=== PATIENT | male | born 1950 | race Caucasian/White ===

== ENCOUNTER 2021-06-23 11:30 | Emergency (ER) | payer OTHER, SELFPAY ==
[2021-06-23 11:48] VITALS: BP 186/84; PULSE 68; RESP 18; TEMP 36.3; O2SAT 99; BMI 27.4
--- NOTE | 2021-06-23 13:55 | ED.EXTPRO ---
HPI - Extremity Problem <Sam Joel PA-C - Last Filed: 06/23/21 14:01> General Chief complaint: Extremity Problem,Nontraumatic Stated complaint: poss blood clot sent by his urgent care Time Seen by Provider: 06/23/21 11:56 Source: patient Mode of arrival: Ambulatory History of Present Illness HPI Narrative: 71-year-old male presents to the ED with left-sided lower leg pain. Patient states he was golfing 6 days prior to arrival wearing a ankle length boot that kept hitting against his lateral fibula. Patient states that towards the end of the round, the pain was quite unbearable. Since then, patient states that he experiences pain in that spot when applying pressure on it. Patient denies any numbness, tingling, weakness, swelling. Patient endorses that he is able to bear weight and ambulate normally. Patient denies history of blood clots. Patient denies any other trauma. Related Data Allergies Allergy/AdvReac Type Severity Reaction Status Date / Time Sulfa (Sulfonamide Allergy Unknown Verified 06/23/21 11:53 Antibiotics) Review of Systems <Sam Joel PA-C - Last Filed: 06/23/21 14:01> Review of Systems ROS Unobtainable: All systems reviewed & are unremarkable except as noted in HPI and below Constitutional Constitutional: Denies chills, Denies fatigue, Denies fever(s), Denies frequent falls, Denies lethargy and Denies weakness Eyes Eyes: Denies change in vision, Denies eye discharge, Denies irritation and Denies loss of vision ENT Ears, Nose, Mouth, and Throat: Denies change in voice, Denies dizziness, Denies neck pain, Denies sore throat and Denies throat swelling Cardiovascular Cardiovascular: Denies chest pain, Denies irregular heart rhythm, Denies lightheadedness, Denies palpitations, Denies dyspnea, Denies dyspnea on exertion and Denies orthopnea Respiratory Respiratory: Denies cough, Denies dyspnea, Denies dyspnea on exertion and Denies wheezing Gastrointestinal Gastrointestinal: Denies abdominal pain, Denies change in bowel habits, Denies diarrhea, Denies nausea and Denies vomiting Genitourinary Genitourinary: Denies hematuria, Denies flank pain, Denies urinary incontinence and Denies urinary urgency Musculoskeletal Musculoskeletal: Denies back pain, Denies muscle weakness, Denies neck pain, Denies numbness and Denies tingling Comments: Left lower leg pain on the lateral side. Integumentary/Breasts Skin/Breast: Denies pruritus, Denies erythema, Denies rash and Denies wounds Neurologic Neurologic: Denies behavioral changes, Denies confusion, Denies dizziness, Denies frequent falls, Denies loss of vision, Denies numbness, Denies tingling and Denies weakness Psychiatric Psychiatric: Denies anxiety, Denies behavioral changes, Denies confusion, Denies depression, Denies homicidal ideation and Denies suicidal ideation Endocrine Endocrine: Denies fatigue, Denies flushing and Denies palpitations Hematologic/Lymphatic Hematologic/Lymphatic: Denies easy bruising Allergic/Immunologic Allergic/Immunologic: Denies urticaria, Denies throat swelling and Denies wheezing Patient History <Sam Joel PA-C - Last Filed: 06/23/21 14:01> Social History Smoking Status: Never smoker Smoking Status: Never smoker alcohol intake frequency: 0-2 drinks per day Substance Use Type: does not use Exam <Sam Joel PA-C - Last Filed: 06/23/21 14:01> Initial Vital Signs Initial Vital Signs: Vital Signs Temperature 97.4 F L 06/23/21 11:48 Pulse Rate 68 06/23/21 11:48 Respiratory Rate 18 06/23/21 11:48 Blood Pressure 186/84 H 06/23/21 11:48 Pulse Oximetry 99 06/23/21 11:48 Const General: cooperative, healthy appearing and comfortable [facility] Head: normal to inspection Resp Effort & Inspection: normal respiratory effort Auscultation: clear to auscultation bilaterally Cardio Rate: regular rate Rhythm: regular rhythm Skin General: no rashes or lesions noted Neuro General: patient alert, patient awake and patient oriented x3 Extrem Other: Mild tenderness to palpation on left lower lateral leg. No erythema, swelling. Full range of motion. Strength and sensation intact. Neurovascularly intact. <Eleazar Burrows DO - Last Filed: 06/23/21 17:16> Initial Vital Signs Initial Vital Signs: Vital Signs Temperature 97.4 F L 06/23/21 11:48 Pulse Rate 68 06/23/21 11:48 Respiratory Rate 18 06/23/21 11:48 Blood Pressure 186/84 H 06/23/21 11:48 Pulse Oximetry 99 06/23/21 11:48 Course <Sam Joel PA-C - Last Filed: 06/23/21 14:01> Vital Signs Vital signs: Vital Signs - 8 hr 06/23/21 11:48 Temperature 97.4 F L Pulse Rate 68 Respiratory Rate 18 Blood Pressure 186/84 H Pulse Oximetry 99 <Eleazar Burrows DO - Last Filed: 06/23/21 17:16> Vital Signs Vital signs: Vital Signs - 8 hr 06/23/21 11:48 Temperature 97.4 F L Pulse Rate 68 Respiratory Rate 18 Blood Pressure 186/84 H Pulse Oximetry 99 MDM - Extremity (Nontraumatic) <Sam Joel PA-C - Last Filed: 06/23/21 14:01> MDM Narrative Medical decision making narrative: 71-year-old male presents to the ED with left-sided lower leg pain. Given history and physical exam, unlikely DVT. Pain is reproducible with palpation. Unlikely fracture/dislocation, given mechanism of injury and extent of symptoms. With joint decision making, we agreed that no imaging is indicated at this point. ED return precautions discussed. Patient will follow-up with PCP. Patient verbalized understanding. Discharge Plan Departure Patient Disposition: Home Clinical Impression: Leg pain Instructions: DI for Leg Pain Activity Restrictions/Additional Instructions: You were evaluated in the ED today for left lower leg pain. Given your history and physical exam, your symptoms are likely due to a contusion due to repeated friction from your boot. You may use Tylenol, ibuprofen, Aleve for your symptoms. You may apply heat packs and elevate your foot for relief. Return to the ED if you notice any numbness, tingling, weakness. Please follow-up with your PCP. <Eleazar Burrows DO - Last Filed: 06/23/21 17:16> Cosign ED Attending Cosjustenature Attestation: Dr Burrows Co-Sign Statement: I was available for consultation during this patient's emergency department visit. This chart is signed by myself for administrative purposes only. I did not have direct contact with this patient during this visit. They were seen independently by the APC.
== END 2021-06-23 14:03 | disposition home or self-care (01) ==
PROVIDERS: Emergency Provider Student in an Organized Health Care Education/Training Program
DX: M79.662 Pain in left lower leg (principal)
CPT/HCPCS: 99281

== ENCOUNTER → 2021-11-30 09:06 | Outpatient (CLI) | payer OTHER, SELFPAY ==
--- NOTE | 2021-11-30 09:07 | DI.US.S_ITS ---
PROCEDURE: US PERIPH VENOUS LOW EXTREM RT INDICATIONS: right calf pain TECHNIQUE: Real-time imaging, as well as color and pulse Doppler interrogation, were performed of the lower extremity deep veins from the inguinal ligament to the popliteal fossa. COMPARISON: None. FINDINGS: The common femoral, femoral and popliteal veins are normally compressible, and free of intraluminal thrombus. Color and pulse Doppler demonstrate normal phasic intraluminal flow. There is normal augmentation response to distal compression maneuver. IMPRESSION: No deep vein thrombosis of the right lower extremity. Dictated by: Ayse Tucker M.D. on 11/30/2021 at 9:31 Approved by: Ayse Tucker M.D. on 11/30/2021 at 9:31
== END ==
PROVIDERS: PCP Family Medicine; Referring Provider Nurse Practitioner Family; Visit Provider Nurse Practitioner Family
DX: M79.661 Pain in right lower leg (principal)
CPT/HCPCS: 93971

== ENCOUNTER → 2021-12-01 09:27 | Outpatient (CLI) | payer OTHER, SELFPAY ==
--- NOTE | 2021-12-01 09:28 | DI.RAD.S_ITS ---
PROCEDURE: XR HAND LT MIN 3V INDICATIONS: left 5th digit pain TECHNIQUE: 3 views of the hand(s) acquired. COMPARISON: None. FINDINGS: Bones: No acute fractures or dislocations. Carpal bones are normally aligned. No suspicious bony lesions. Soft tissues: No suspicious soft tissue calcifications. IMPRESSION: No visualized acute fracture or dislocation. However, if clinical concern and/or pain persist, short interval imaging followup in 7-10 days is recommended, as occult injury cannot be definitively excluded. Dictated by: Alison Najera M.D. on 12/01/2021 at 9:52 Approved by: Alison Najera M.D. on 12/01/2021 at 10:00
== END ==
PROVIDERS: PCP Family Medicine; Referring Provider Physician Assistant; Visit Provider Physician Assistant
DX: M79.645 Pain in left finger(s) (principal)
CPT/HCPCS: 73130

== ENCOUNTER → 2022-03-30 10:06 | Outpatient (CLI) | payer OTHER, SELFPAY ==
--- NOTE | 2022-03-30 11:03 | DI.RAD.S_ITS ---
PROCEDURE: XR LUMBAR SPINE MIN 4V INDICATIONS: chronic back pain and right calf aching TECHNIQUE: 5 views of the lumbar spine were acquired, including bilateral oblique views. COMPARISON: None. FINDINGS: Bones: 5 nonrib-bearing vertebrae are present, with rudimentary ribs at T12. There is normal bony alignment. No vertebral body compression fractures. No suspicious bony lesions. Multilevel disc space narrowing and endplate osteophyte formation. Facet hypertrophy throughout the mid and lower lumbar spine. Soft tissues: Overlying bowel gas pattern is normal. No suspicious soft tissue calcifications. IMPRESSION: 1. Multilevel degenerative disc and facet disease. 2. No acute fracture. No osseous lesion. If symptoms and/or clinical suspicion for pathology persist, further assessment with repeat, or advanced imaging (e.g., CT, MRI, or bone scan) may be helpful for further assessment. Dictated by: Christofer Velasquez M.D. on 03/30/2022 at 11:52 Transcribed by: VANNA on 03/30/2022 at 11:52 Approved by: Christofer Velasquez M.D. on 03/30/2022 at 16:36
[2022-03-30 11:49] LABS: Add Manual Diff / Slide Review NO; Basophils Absolute Auto 0 /uL (0-100); Basophils Percent Auto 0.7 % (0-2); Eosinophils Absolute Auto 200 /uL (0-450); Hematocrit 42.8 % (41-53); Hemoglobin 14.7 g/dL (13.5-17.5); Lymphocytes Absolute Auto 1900 /uL (1100-4500); Lymphocytes Percent Auto 36.2 % (25-40); Mean Corpuscular HGB Conc 34.3 % (30-36); Mean Corpuscular Hemoglobin 31.9 PG (26-34); Mean Corpuscular Volume 92.9 fL (80-100); Monocytes Absolute Auto 500 /uL (0-900); Monocytes Percent Auto 10.4 % (3-14); Neutrophils Absolute Auto 2600 /uL (1500-7000); Neutrophils Percent Auto 49.7 % (50-75); Platelet Count 206 X10^3/uL (150-400); Red Cell Distribution Width 13.2 % (11.6-14.8); White Blood Cell Count 5.3 X10^3/uL (4.5-11.0)
[2022-03-30 12:33] LABS: TSH w/ Reflex to FT4 2.26 uIU/mL (0.47-4.68)
[2022-03-30 13:18] LABS: Alanine Aminotransferase 26 IU/L (<50); Albumin 4.4 g/dL (3.5-5.0); Albumin Globulin Ratio 1.5 (1.0-2.8); Alkaline Phosphatase 71 U/L (38-126); Aspartate Aminotransferase 23 IU/L (17-59); BUN Creatinine Ratio 19.3 (6-22); Bilirubin Total 0.4 mg/dL (0.2-1.3); Blood Urea Nitrogen 21 mg/dL (9-20); Calcium 9.4 mg/dL (8.4-10.2); Carbon Dioxide 28 mmol/L (22-32); Chloride 100 mmol/L (98-107); Cholesterol 188 mg/dL (140-199); Estimated Glomerular Filt Rate > 60 mL/min (>60); Globulin 2.9 g/dL (1.7-4.1); Glucose 99 mg/dL (80-110); HDL Cholesterol 60 mg/dL (40-60); HEMOLYSIS < 15 (0-50); LDL Cholesterol Calculated 113 mg/dL (<100); Potassium 4.6 mmol/L (3.4-5.1); Sodium 138 mmol/L (137-145); Total Protein 7.3 g/dL (6.3-8.2); Triglycerides 75 mg/dL (35-150)
[2022-03-30 13:36] LABS: Creatinine Urine Random 88.7 mg/dL
[2022-03-30 13:40] LABS: Microalbumi Creatinin Ratio Ur 11.2 ug/mg CR (<30)
[2022-03-30 13:42] LABS: Prostate Specific Antigen Scrn 5.06 ng/mL (0.1-4.0)
== END ==
PROVIDERS: PCP Family Medicine; Referring Provider Family Medicine; Visit Provider Family Medicine
DX: Z12.5 Encounter for screening for malignant neoplasm of prostate (principal); E78.2 Mixed hyperlipidemia; I10 Essential (primary) hypertension; N21.9 Calculus of lower urinary tract, unspecified; G89.29 Other chronic pain; M54.16 Radiculopathy, lumbar region; M51.16 Intervertebral disc disorders with radiculopathy, lumbar region; M47.816 Spondylosis without myelopathy or radiculopathy, lumbar region
CPT/HCPCS: 36415; 72110; 80053; 80061; 82043; 82570; 84443; 85025; G0103

== ENCOUNTER → 2022-04-01 19:30 | Outpatient (CLI) | payer OTHER, SELFPAY ==
--- NOTE | 2022-04-01 19:31 | DI.MRI.S_ITS ---
PROCEDURE: MR LUMBAR SPINE WO CON INDICATIONS: Right-sided radicular symptoms, chronic back pain TECHNIQUE: Noncontrast sagittal T1 spin echo and T2 fast echo, sagittal STIR, and T2 fast spin echo through the lumbar spine. In cases with scoliosis, additional coronal T2 fast spin echo may be performed. COMPARISON: None. FINDINGS: Image quality: Excellent. Alignment and Curvature: There is normal bony alignment. Bone Marrow: Marrow is of normal overall signal. No acute vertebral body compression fractures. Mild and degenerative endplate changes noted. Modic type 1 degenerative endplate changes noted involving the superior endplates of L1, L2-2 in the inferior endplate of L3. Spinal Cord: Conus medullaris terminates at the L1 level. Visualized cord demonstrates normal signal and size. Paraspinous Soft Tissues: No paravertebral masses. T12-L1: Normal appearance. L1-L2: Normal appearance. L2-L3: Normal appearance. L3-L4: Normal appearance. L4-L5: Normal appearance. L5-S1: Normal appearance. IMPRESSION: Modic type 1 edematous degenerative endplate changes. No central or foraminal stenosis throughout the exam Approved by: Garth Chandra M.D. on 04/02/2022 at 10:56
== END ==
PROVIDERS: PCP Family Medicine; Referring Provider Family Medicine; Visit Provider Family Medicine
DX: M47.816 Spondylosis without myelopathy or radiculopathy, lumbar region
CPT/HCPCS: 72148

== ENCOUNTER → 2022-06-29 08:40 | Outpatient (CLI) | payer OTHER, SELFPAY ==
[2022-06-29 11:47] LABS: Prostate Specific Antigen Scrn 4.56 ng/mL (0.1-4.0)
== END ==
PROVIDERS: PCP Family Medicine; Referring Provider Family Medicine; Visit Provider Family Medicine
DX: Z12.5 Encounter for screening for malignant neoplasm of prostate (principal)
CPT/HCPCS: 36415; G0103

== ENCOUNTER → 2023-01-03 07:27 | Outpatient (CLI) | payer OTHER, SELFPAY ==
[2023-01-03 08:39] LABS: Add Manual Diff / Slide Review NO; Basophils Absolute Auto 100 /uL (0-100); Basophils Percent Auto 0.8 % (0-2); Eosinophils Absolute Auto 200 /uL (0-450); Eosinophils Percent Auto 3.5 % (2-4); Hemoglobin 14.7 g/dL (13.5-17.5); Lymphocytes Absolute Auto 2400 /uL (1100-4500); Lymphocytes Percent Auto 35.8 % (25-40); Mean Corpuscular HGB Conc 34.2 % (30-36); Mean Corpuscular Hemoglobin 31.7 PG (26-34); Mean Corpuscular Volume 92.5 fL (80-100); Monocytes Absolute Auto 700 /uL (0-900); Neutrophils Absolute Auto 3300 /uL (1500-7000); Neutrophils Percent Auto 49.9 % (50-75); Platelet Count 210 X10^3/uL (150-400); Red Blood Cell Count 4.64 X10^6/uL (4.5-5.9); Red Cell Distribution Width 13.2 % (11.6-14.8); White Blood Cell Count 6.6 X10^3/uL (4.5-11.0)
[2023-01-03 08:50] LABS: Alanine Aminotransferase 27 IU/L (<50); Albumin 4.3 g/dL (3.5-5.0); Albumin Globulin Ratio 1.3 (1.0-2.8); Alkaline Phosphatase 84 U/L (38-126); Aspartate Aminotransferase 27 IU/L (17-59); Bilirubin Total 0.7 mg/dL (0.2-1.3); Blood Urea Nitrogen 21 mg/dL (9-20); Calcium 9.4 mg/dL (8.4-10.2); Carbon Dioxide 26 mmol/L (22-32); Chloride 103 mmol/L (98-107); Cholesterol 199 mg/dL (140-199); Estimated Glomerular Filt Rate > 60 mL/min (>60); Globulin 3.2 g/dL (1.7-4.1); Glucose 106 mg/dL (80-110); HDL Cholesterol 57 mg/dL (40-60); HEMOLYSIS < 15 (0-50); LDL Cholesterol Calculated 124 mg/dL (<100); Potassium 4.1 mmol/L (3.4-5.1); Sodium 136 mmol/L (137-145); Total Protein 7.5 g/dL (6.3-8.2); Triglycerides 90 mg/dL (35-150)
[2023-01-03 09:20] LABS: Prostate Specific Antigen Scrn 5.62 ng/mL (0.1-4.0)
[2023-01-03 09:23] LABS: Creatinine Urine Random 104.2 mg/dL
[2023-01-03 09:28] LABS: Microalbumi Creatinin Ratio Ur 9.5 ug/mg CR (<30)
== END ==
PROVIDERS: PCP Family Medicine; Referring Provider Family Medicine; Visit Provider Family Medicine
DX: E78.2 Mixed hyperlipidemia (principal); Z12.5 Encounter for screening for malignant neoplasm of prostate; I10 Essential (primary) hypertension; K21.9 Gastro-esophageal reflux disease without esophagitis
CPT/HCPCS: 36415; 80053; 80061; 82043; 82570; 84443; 85025; G0103

== ENCOUNTER → 2023-02-07 11:21 | Outpatient (CLI) | payer OTHER, SELFPAY ==
--- NOTE | 2023-02-07 11:22 | DI.RAD.S_ITS ---
PROCEDURE: XR FOOT LT MIN 3V INDICATIONS: L medial heel pain/tenderness 3wk, active, no injury TECHNIQUE: 3 views of the foot were acquired. COMPARISON: None. FINDINGS: Bones: No fractures or dislocations. No suspicious bony lesions. Mild osteoarthritic changes of the interphalangeal and 1st metatarsophalangeal joints. Soft tissues: No tibiotalar joint effusion. Achilles tendon appears normal. IMPRESSION: No acute osseous abnormality. If pain persists with conservative management, consider repeat x-ray in 10-14 days or cross-sectional imaging. Dictated by: Ivan Reyes M.D. on 02/07/2023 at 11:44 Approved by: Ivan Reyes M.D. on 02/07/2023 at 11:44
== END ==
PROVIDERS: PCP Family Medicine; Referring Provider Student in an Organized Health Care Education/Training Program; Visit Provider Student in an Organized Health Care Education/Training Program
DX: M79.672 Pain in left foot (principal)
CPT/HCPCS: 73630

== ENCOUNTER → 2023-03-28 08:35 | Outpatient (CLI) | payer OTHER, SELFPAY ==
[2023-03-28 10:09] LABS: Cholesterol 185 mg/dL (140-199); HDL Cholesterol 57 mg/dL (40-60); LDL Cholesterol Calculated 112 mg/dL (<100); Triglycerides 81 mg/dL (35-150)
[2023-03-28 10:34] LABS: Prostate Specific Antigen 5.25 ng/mL (0.10-4.00)
== END ==
PROVIDERS: PCP Family Medicine; Referring Provider Family Medicine; Visit Provider Family Medicine
DX: E78.2 Mixed hyperlipidemia (principal); R97.20 Elevated prostate specific antigen [PSA]
CPT/HCPCS: 36415; 80061; 84153

== ENCOUNTER → 2023-03-29 09:00 | Outpatient (CLI) | payer OTHER, SELFPAY ==
--- NOTE | 2023-03-29 09:01 | DI.MRI.S_ITS ---
PROCEDURE: MR PELVIC PROSTATE PROTOCOL INDICATIONS: Elevated PSA TECHNIQUE: Coronal HASTE, axial T1 FSE with fat saturation, 3-plane nonbreath-hold T2 FSE. After the administration of contrast, dynamic axial, delayed axial and coronal VIBE or 2-D FLASH with fat saturation through the pelvis. Optional diffusion weighted imaging and ADC may be performed. COMPARISON: None. FINDINGS: Image quality: Diffusion weighted and dynamic contrast enhanced images are diagnostic. Prostate: Gland size is 5.3 x 3.6 x 3.2 cm; ellipsoid gland volume is 31.7 mL. Lesion 1: Small wedge-shaped focus of T2 hypointensity measuring 0.8 x 0.8 cm in the left posterolateral peripheral zone at the mid gland level. There is minor ADC hypointensity and no significant diffusion image abnormality. Mild arterial enhancement. Overall score PI-RADS 3. Lesion 2: Indistinct, minimally T2 hypointense area in the right posterolateral peripheral zone at the mid gland level extending towards the apex. This area is best seen on diffusion imaging and measures 1.9 cm. There is minimal corresponding ADC hypointensity and mild early arterial enhancement. Overall PI-RADS 3. Genitourinary system: Bladder wall thickness is normal. Distal ureters are non distended. Bowel and peritoneum: No pathologic free pelvic fluid. Inferior colon and small bowel loops are normal in caliber. Nodes and vessels: No pelvic or inguinal adenopathy by size criteria. Iliac vessels are normal in caliber. Soft tissues: No inguinal hernias. Bones: Marrow demonstrates normal overall signal, without lesions to suggest metastases. IMPRESSION: 2 areas in the peripheral zone of the prostate gland with indeterminate characteristics and PI-RADS score 3. Differential diagnosis includes prostatitis and postinflammatory fibrosis. No adenopathy. Dictated by: Bharti Schneider M.D. on 03/29/2023 at 15:14 Approved by: Bharti Schneider M.D. on 03/29/2023 at 15:29
== END ==
PROVIDERS: PCP Family Medicine; Referring Provider Urology; Visit Provider Urology
DX: R97.20 Elevated prostate specific antigen [PSA] (principal)
CPT/HCPCS: 72197; A9579

== ENCOUNTER → 2023-04-19 10:11 | Outpatient (CLI) | payer OTHER, SELFPAY ==
--- NOTE | 2023-04-19 10:12 | DI.RAD.S_ITS ---
PROCEDURE: XR ELBOW RT MIN 3V INDICATIONS: right elbow pain over medial epicondyle TECHNIQUE: 3 views of the elbow were acquired. COMPARISON: None. FINDINGS: Bones: No fractures or dislocations. No suspicious bony lesions. Soft tissues: No elbow joint effusion. No suspicious soft tissue calcifications. IMPRESSION: No acute bony abnormality or significant joint effusion. Dictated by: Michel Morton M.D. on 04/19/2023 at 14:33 Approved by: Michel Morton M.D. on 04/19/2023 at 14:33
== END ==
PROVIDERS: PCP Family Medicine; Referring Provider Family Medicine; Visit Provider Family Medicine
DX: M25.521 Pain in right elbow (principal)
CPT/HCPCS: 73080

== ENCOUNTER → 2023-07-04 07:29 | Outpatient (CLI) | payer OTHER, SELFPAY ==
[2023-07-06 09:43] LABS: PSA Free % 9.8 % (.); PSA, Total 6.2 ng/mL (0.0-4.0)
== END ==
PROVIDERS: PCP Family Medicine; Referring Provider Urology; Visit Provider Urology
DX: R97.20 Elevated prostate specific antigen [PSA] (principal); Z80.42 Family history of malignant neoplasm of prostate
CPT/HCPCS: 36415; 84153; 84154

== ENCOUNTER → 2023-07-21 09:46 | Outpatient (CLI) | payer OTHER, SELFPAY | PROVIDERS: PCP Family Medicine; Visit Provider Urology | DX: N41.1 Chronic prostatitis (principal); R97.20 Elevated prostate specific antigen [PSA]; R39.9 Unspecified symptoms and signs involving the genitourinary system; Z80.42 Family history of malignant neoplasm of prostate | CPT/HCPCS: 51798; 81002; 87086; 99214 ==

== ENCOUNTER 2023-08-09 11:05 | Day surgery (SDC) | payer OTHER, SELFPAY ==
[2023-08-09 12:14] VITALS: BP 147/73; PULSE 57; RESP 16; TEMP 36.1; O2SAT 97
[2023-08-09] MEDS: LACTATED RINGERS 1,000 ML 42 ML IV (12:22)
--- NOTE | 2023-08-09 13:13 | P.HP_ITS ---
History of Present Illness History of Present Illness Date Patient Seen: 08/09/23 Time Patient Seen: 13:14 Chief complaint: Screening Colonoscopy Narrative: 73-year-old man personal history of colonic polyps here for screening colonoscopy. Last colonoscopy 4-5 years ago. No family history of intestinal malignancy. No abdominal concerns today. FOR[facility]LY [facility], [facility] Medical History Chronic prostatitis Lower urinary tract symptoms Family history of prostate cancer in father Rising PSA level Elevated PSA Plantar fasciitis H/O tinnitus Male circumcision Skin cancer, basal cell GERD (gastroesophageal reflux disease) Hyperlipidemia Hypertension Surgical History History of tonsillectomy and adenoidectomy Family History Father Cancer Hyperlipidemia Hypertension Mother Cancer Hyperlipidemia Migraines Sister Diabetes mellitus Hearing impairment Social History marital status: number of children: 0 occupational status: previously employed and other Smoking Status: Never smoker alcohol intake: current caffeine: Yes Type(s) of exercise: weight lifting, other and running frequency: 3-4 times per week duration: 15-30 minutes/day Meds Home Medications and Allergies Home Medications Medication Instructions Recorded Confirmed Type losartan 25 mg tablet 25 mg PO DAILY #90 tabs 11/01/22 08/09/23 Rx rizatriptan 10 mg tablet See Rx Instructions PO .COMPLEX 03/11/23 07/21/23 Rx #20 tabs ipratropium bromide 21 mcg (0.03 2 spray intranasal BID #30 mL 04/21/23 08/09/23 Rx %) nasal spray peg 3350-electrolytes 236 240 ml PO Q10M #4,000 mL 05/17/23 07/21/23 Rx gram-22.74 gram-6.74 gram-5.86 gram solution (Golytely) pravastatin 20 mg tablet 20 mg PO DAILY #90 tabs 07/26/23 08/09/23 Rx Allergies Allergy/AdvReac Type Severity Reaction Status Date / Time Sulfa (Sulfonamide Allergy Unknown Hives Verified 08/09/23 12:09 Antibiotics) Exam Vital Signs (past 8 hours): - 03/19/24 12:14 Temperature 97 F L Pulse Rate 57 L Respiratory Rate 16 Blood Pressure 147/73 H Pulse Oximetry 97 Oxygen Delivery Method Room Air Oxygen Delivery Method Room Air Narrative Exam Narrative: General adult man alert oriented no acute distress Chest nonlabored respiration Extremities warm well perfused Assessment & Plan Assessment & Plan narrative: The patient requires colorectal screening and colonoscopy is recommended. Technical details were discussed. Risks, benefits, alternatives explained. Risks including but not limited to myocardial infarction, aspiration, bleeding, pain, missed lesion, incomplete examination, need for further radiographic studies, colonic perforation, and need for major abdominal surgery were discussed. All questions were answered to their satisfaction, and they are in agreement with this plan.
[2023-08-09 13:33] VITALS: BP 102/59; PULSE 55; RESP 15; TEMP 36.4; O2SAT 97
--- NOTE | 2023-08-09 13:35 | P.OP.COLON_ITS ---
Operative Date/Time/Diagnoses Date of procedure: 08/09/23 Time of procedure: 13:35 Pre-op diagnosis: Colorectal screening Procedure & Clinicians Study performed: Colonoscopy Same procedure as scheduled: Yes Indications: Colorectal screening Surgeon: Rayshawn Figueroa Procedure Notes Procedure in detail: The history and physical was performed/updated and the patient is ASA class is 2. The procedure was discussed in detail with the patient. Potential risks complications including infection, bleeding, missed diagnosis, perforation, need for surgery, and were explained. Their questions were answered and informed consent was obtained. Patient was brought to the procedure room and placed standard monitoring equipment. The patient's vital signs were monitored continuously throughout the entire procedure. Prior to starting time-out was performed. The patient was placed in the left lateral recumbent position. Procedural sedation was administered by anesthesia. Examination began with a thorough inspection of the perianal area there was no evidence of fissures, fistulae, external hemorrhoids or cutaneous malignancy. The colonoscopy scope was then placed into the anal canal and was advanced to the cecum, which was identified by the ileocecal valve , the appendiceal orifice and the confluence of the taenia. The scope was then slowly withdrawn examining colon thoroughly in all directions, irrigating it of any residual stool. The scope was retroflexed within the rectum The patient tolerated the procedure well. They will be discharged once criteria are met. The prep was of good/excellent quality. The withdrawl time was 6 minutes. FINDINGS * No masses polyps or inflammation. * Descending colon mild diverticulosis * Internal hemorrhoids Specimen(s): none sent Impression: Normal colonoscopy Post-procedure Recommendations: High fiber diet Disposition: same day surgery
[2023-08-09 13:38] VITALS: BP 108/64; PULSE 52; RESP 15; TEMP 36.4; O2SAT 98
[2023-08-09 13:43] VITALS: BP 109/64; PULSE 50; RESP 13; TEMP 36.4; O2SAT 98
== END 2023-08-09 13:59 | disposition home or self-care (01) ==
PROVIDERS: PCP Family Medicine; Referring Provider Surgery; Visit Provider Surgery
PROC: 0DJD8ZZ Inspection of Lower Intestinal Tract, Via Natural or Artificial Opening Endoscopic (ICD-10-PCS; CPT 45378; principal; 2023-08-09 12:15)
DX: Z12.11 Encounter for screening for malignant neoplasm of colon (principal); K57.30 Diverticulosis of large intestine without perforation or abscess without bleeding; K64.8 Other hemorrhoids
CPT/HCPCS: 45378; J2704

== ENCOUNTER → 2023-10-03 08:37 | Outpatient (CLI) | payer OTHER, SELFPAY ==
[2023-10-04 08:45] LABS: PSA Free % 11.3 % (.); PSA, Total 4.7 ng/mL (0.0-4.0)
== END ==
PROVIDERS: PCP Family Medicine; Referring Provider Urology; Visit Provider Urology
DX: R97.20 Elevated prostate specific antigen [PSA] (principal)
CPT/HCPCS: 36415; 84153; 84154

== ENCOUNTER → 2023-10-19 11:24 | Outpatient (CLI) | payer OTHER, SELFPAY | PROVIDERS: PCP Family Medicine; Visit Provider Urology | DX: N41.1 Chronic prostatitis (principal); R39.9 Unspecified symptoms and signs involving the genitourinary system; R97.20 Elevated prostate specific antigen [PSA]; Z80.42 Family history of malignant neoplasm of prostate | CPT/HCPCS: 81002; 87086; 99213 ==

== ENCOUNTER → 2024-01-03 06:53 | Outpatient (CLI) | payer OTHER, SELFPAY | PROVIDERS: PCP Family Medicine; Referring Provider Urology; Visit Provider Urology | DX: R97.20 Elevated prostate specific antigen [PSA] (principal) | CPT/HCPCS: 36415; 84153; 84154 ==

== ENCOUNTER → 2024-04-03 07:16 | Outpatient (CLI) | payer OTHER, SELFPAY ==
[2024-04-03 07:48] LABS: Add Manual Diff / Slide Review NO; Basophils Absolute Auto 0 /uL (0-100); Basophils Percent Auto 0.8 % (0-2); Eosinophils Absolute Auto 200 /uL (0-450); Eosinophils Percent Auto 3.9 % (2-4); Hematocrit 44.3 % (41-53); Lymphocytes Absolute Auto 2400 /uL (1100-4500); Lymphocytes Percent Auto 38.9 % (25-40); Mean Corpuscular HGB Conc 33.9 % (30-36); Mean Corpuscular Volume 94.3 fL (80-100); Monocytes Absolute Auto 600 /uL (0-900); Neutrophils Absolute Auto 2800 /uL (1500-7000); Neutrophils Percent Auto 46.4 % (50-75); Platelet Count 222 X10^3/uL (150-400); Red Cell Distribution Width 13.2 % (11.6-14.8); White Blood Cell Count 6.1 X10^3/uL (4.5-11.0)
[2024-04-03 08:08] LABS: Alanine Aminotransferase 25 IU/L (<50); Albumin 4.4 g/dL (3.5-5.0); Albumin Globulin Ratio 1.6 (1.0-2.8); Alkaline Phosphatase 77 U/L (38-126); Aspartate Aminotransferase 25 IU/L (17-59); BUN Creatinine Ratio 18.9 (6-22); Bilirubin Total 0.7 mg/dL (0.2-1.3); Blood Urea Nitrogen 21 mg/dL (9-20); Calcium 9.6 mg/dL (8.4-10.2); Carbon Dioxide 28 mmol/L (22-32); Chloride 103 mmol/L (98-107); Cholesterol 190 mg/dL (140-199); Estimated Glomerular Filt Rate > 60 mL/min (>60); Globulin 2.7 g/dL (1.7-4.1); Glucose 114 mg/dL (80-110); HDL Cholesterol 63 mg/dL (40-60); HEMOLYSIS < 15 (0-50); LDL Cholesterol Calculated 111 mg/dL (<100); Potassium 4.7 mmol/L (3.4-5.1); Sodium 137 mmol/L (137-145); Total Protein 7.1 g/dL (6.3-8.2); Triglycerides 81 mg/dL (35-150)
[2024-04-03 08:37] LABS: TSH w/ Reflex to FT4 3.72 uIU/mL (0.47-4.68)
[2024-04-03 08:54] LABS: Creatinine Urine Random 68.18 mg/dL
[2024-04-03 09:05] LABS: Microalbumin Urine Random < 0.6 mg/dL (0-1.6)
[2024-04-04 08:11] LABS: PSA Free % 10.3 % (.); PSA, Total 6.3 ng/mL (0.0-4.0)
== END ==
PROVIDERS: Urology; PCP Family Medicine; Referring Provider Family Medicine; Visit Provider Family Medicine
DX: E78.5 Hyperlipidemia, unspecified (principal); I10 Essential (primary) hypertension; N41.1 Chronic prostatitis; R97.20 Elevated prostate specific antigen [PSA]
CPT/HCPCS: 36415; 80053; 80061; 82043; 82570; 84153; 84154; 84443; 85025

== ENCOUNTER → 2024-04-24 08:12 | Outpatient (CLI) | payer OTHER, SELFPAY ==
[2024-04-26 12:17] LABS: PSA Free % 11.1 % (.); PSA, Total 6.2 ng/mL (0.0-4.0)
== END ==
PROVIDERS: PCP Family Medicine; Referring Provider Urology; Visit Provider Urology
DX: R97.20 Elevated prostate specific antigen [PSA] (principal)
CPT/HCPCS: 36415; 84153; 84154

== ENCOUNTER → 2024-05-04 08:12 | Outpatient (CLI) | payer OTHER, SELFPAY | PROVIDERS: PCP Family Medicine; Visit Provider Urology | DX: S39.94XA Unspecified injury of external genitals, initial encounter (principal); N39.0 Urinary tract infection, site not specified; R39.9 Unspecified symptoms and signs involving the genitourinary system; R97.20 Elevated prostate specific antigen [PSA]; Z80.42 Family history of malignant neoplasm of prostate | CPT/HCPCS: 51798; 81002; 87086; 99214 ==

== ENCOUNTER → 2024-07-10 18:03 | Outpatient (ROUT) | payer OTHER, SELFPAY | PROVIDERS: PCP Family Medicine; Visit Provider Dermatology | DX: B00.1 Herpesviral vesicular dermatitis (principal) | CPT/HCPCS: 87529 ==

== ENCOUNTER → 2024-07-13 07:02 | Outpatient (CLI) | payer OTHER, SELFPAY ==
[2024-07-13 08:34] LABS: Hemoglobin A1C% w Est Avg Glu 5.7 % (4.0-6.0)
[2024-07-13 08:42] LABS: Alanine Aminotransferase 26 IU/L (<50); Albumin 4.3 g/dL (3.5-5.0); Albumin Globulin Ratio 1.7 (1.0-2.8); Alkaline Phosphatase 76 U/L (38-126); Aspartate Aminotransferase 28 IU/L (17-59); BUN Creatinine Ratio 16.5 (6-22); Bilirubin Total 0.8 mg/dL (0.2-1.3); Blood Urea Nitrogen 20 mg/dL (9-20); Calcium 9.3 mg/dL (8.4-10.2); Carbon Dioxide 28 mmol/L (22-32); Chloride 104 mmol/L (98-107); Estimated Glomerular Filt Rate > 60 mL/min (>60); Globulin 2.5 g/dL (1.7-4.1); Glucose 97 mg/dL (80-110); HEMOLYSIS < 15 (0-50); Potassium 4.9 mmol/L (3.4-5.1); Sodium 137 mmol/L (137-145); Total Protein 6.8 g/dL (6.3-8.2)
[2024-07-14 09:11] LABS: PSA Free % 10.9 % (.); PSA, Total 5.3 ng/mL (0.0-4.0)
== END ==
PROVIDERS: Urology; PCP Family Medicine; Referring Provider Family Medicine; Visit Provider Family Medicine
DX: R73.9 Hyperglycemia, unspecified (principal); R97.20 Elevated prostate specific antigen [PSA]
CPT/HCPCS: 80053; 83036; 84153; 84154

== ENCOUNTER → 2024-08-01 13:20 | Outpatient (CLI) | payer OTHER, SELFPAY | PROVIDERS: PCP Family Medicine; Visit Provider Urology | DX: R39.9 Unspecified symptoms and signs involving the genitourinary system (principal); R97.20 Elevated prostate specific antigen [PSA]; Z80.42 Family history of malignant neoplasm of prostate; N40.1 Benign prostatic hyperplasia with lower urinary tract symptoms; N13.8 Other obstructive and reflux uropathy; S39.94XA Unspecified injury of external genitals, initial encounter; N41.1 Chronic prostatitis; Z68.27 Body mass index [BMI] 27.0-27.9, adult | CPT/HCPCS: 51798; 81002; 87086; 99213 ==

== ENCOUNTER → 2024-10-19 06:53 | Outpatient (CLI) | payer OTHER, SELFPAY ==
[2024-10-22 16:10] LABS: PSA Free % 12.3 % (.); PSA, Total 5.7 ng/mL (0.0-4.0)
== END ==
PROVIDERS: PCP Family Medicine; Referring Provider Urology; Visit Provider Urology
DX: R97.20 Elevated prostate specific antigen [PSA] (principal)
CPT/HCPCS: 36415; 84153; 84154

== ENCOUNTER → 2024-11-14 09:46 | Outpatient (CLI) | payer OTHER, SELFPAY ==
--- NOTE | 2024-11-14 09:48 | DI.RAD.S_ITS ---
PROCEDURE: XR CHEST 2V INDICATIONS: aspiration followed by chest pain TECHNIQUE: 2 views of the chest were acquired. COMPARISON: None. FINDINGS: Surgical changes and devices: None. Lungs and pleura: Lungs are clear. No pleural effusions or pneumothorax. Mediastinum: Mediastinal contours are normal. Heart size is normal. Bones and chest wall: No suspicious bony abnormalities. Soft tissues appear unremarkable. IMPRESSION: No acute cardiopulmonary abnormality is seen. Dictated by: Michel Morton M.D. on 11/14/2024 at 10:19 Approved by: Michel Morton M.D. on 11/14/2024 at 10:19
== END ==
LOC: RAD 09:47
PROVIDERS: PCP Family Medicine; Referring Provider Chiropractor; Visit Provider Chiropractor
DX: R07.1 Chest pain on breathing (principal)
CPT/HCPCS: 71046

== ENCOUNTER → 2024-11-16 13:24 | Outpatient (CLI) | payer OTHER, SELFPAY | PROVIDERS: PCP Family Medicine; Visit Provider Urology | DX: N40.1 Benign prostatic hyperplasia with lower urinary tract symptoms (principal); N13.8 Other obstructive and reflux uropathy | CPT/HCPCS: 87086 ==

== ENCOUNTER → 2024-12-25 11:06 | Outpatient (CLI) | payer OTHER, SELFPAY ==
[2024-12-25 12:06] LABS: Alanine Aminotransferase 29 IU/L (<50); Albumin 4.4 g/dL (3.5-5.0); Albumin Globulin Ratio 1.6 (1.0-2.8); Alkaline Phosphatase 73 U/L (38-126); Blood Urea Nitrogen 25 mg/dL (9-20); Calcium 9.6 mg/dL (8.4-10.2); Carbon Dioxide 26 mmol/L (22-32); Chloride 103 mmol/L (98-107); Estimated Glomerular Filt Rate > 60 mL/min (>60); Globulin 2.7 g/dL (1.7-4.1); Glucose 101 mg/dL (70-99); HEMOLYSIS < 15 (0-50); Potassium 4.6 mmol/L (3.4-5.1); Sodium 137 mmol/L (137-145); Total Protein 7.1 g/dL (6.3-8.2)
[2024-12-25 12:10] LABS: Add Manual Diff / Slide Review NO; Hematocrit 45.6 % (41-53); Hemoglobin 15.6 g/dL (13.5-17.5); Lymphocytes Absolute Auto 1800 /uL (1100-4500); Mean Corpuscular HGB Conc 34.2 % (30-36); Mean Corpuscular Hemoglobin 32.3 PG (26-34); Mean Corpuscular Volume 94.6 fL (80-100); Platelet Count 203 X10^3/uL (150-400)
[2024-12-26 07:40] LABS: Interpretation Negative (Negative)
== END ==
PROVIDERS: PCP Family Medicine; Referring Provider Family Medicine; Visit Provider Family Medicine
DX: R07.81 Pleurodynia (principal)
CPT/HCPCS: 36415; 80053; 83013; 85025; 85379

== ENCOUNTER → 2024-12-28 12:00 | Outpatient (CLI) | payer OTHER, SELFPAY ==
--- NOTE | 2024-12-28 12:00 | DI.CT.S_ITS ---
PROCEDURE: CT CHEST WO CON INDICATIONS: Chest Pain TECHNIQUE: Noncontrast 5 mm thick sections acquired from the pulmonary apices to the posterior costophrenic angles. 1 mm lung window, 5 mm thick coronal and sagittal and 7 mm axial MIP reformats were then acquired. For radiation dose reduction, the following was used: automated exposure control, adjustment of mA and/or kV according to patient size. COMPARISON: None. FINDINGS: Image quality: Diagnostic. Lungs and Pleura: Central and peripheral airways are normal without bronchial wall thickening or bronchiectasis. No endobronchial foreign bodies or significant mucus impaction. No postobstructive atelectasis. No acute ground-glass opacities. No pleural effusions or pleural calcifications. Lower Neck: No enlarged lymph nodes. Thyroid: Normal CT appearance. Axillae: No enlarged lymph nodes. Chest Wall: No suspicious chest wall lesions. Bones: No suspicious bone lesion. Mild degenerative changes in the spine. Thoracic Vessels: The aorta and pulmonary arteries demonstrate normal size. Mediastinum and Lacey: No enlarged lymph nodes. Heart: Heart size is normal. No pericardial effusion. Moderate to heavy coronary artery calcification. Esophagus: No wall thickening. No hiatal hernia. . Upper Abdomen: Visualized upper abdomen solid organs and bowel loops appear normal. IMPRESSION: No CT findings of airway obstruction or pulmonary disease. Moderate to heavy coronary artery calcification Dictated by: Bharti Schneider M.D. on 12/28/2024 at 15:08 Approved by: Bharti Schneider M.D. on 12/28/2024 at 15:12
== END ==
PROVIDERS: PCP Family Medicine; Referring Provider Family Medicine; Visit Provider Family Medicine
DX: I25.10 Atherosclerotic heart disease of native coronary artery without angina pectoris (principal); R07.9 Chest pain, unspecified
CPT/HCPCS: 71250

== ENCOUNTER → 2025-01-14 12:34 | Outpatient (CLI) | payer OTHER, SELFPAY ==
--- NOTE | 2025-02-01 17:18 | DI.NM.S_ITS ---
DATE OF SERVICE: 01/14/2025 PROCEDURE: Exercise perfusion study. The stress test part was done on February 01, 2025. INDICATIONS: Chest pain. RADIOPHARMACEUTICAL: 26.1 millicurie technetium-99m Myoview at stress and 26.9 millicurie technetium-99m Myoview IV was injected at rest. CARDIAC STRESS: The patient underwent exercise perfusion study under the supervision of an attending staff. He walked on Gary protocol for 10 minutes, achieved maximum heart rate of 158, which was 109% of target heart rate with normal blood pressure response. Resting blood pressure 118/62 and peak blood pressure 160/90. Baseline rhythm sinus with repolarization changes. During peak exercise and early recovery, the patient has up to 2 mm horizontal/down sloping ST depression diffusely in inferior leads as well as lead V3 to V6. There appears to be [address] elevation in AVR. Those ST changes reverted back to baseline around 3 minutes into the recovery. No chest pain. Had shortness of breath. No significant arrhythmias. RAW DATA: Normal myocardial uptake. GATED STUDY: Resting LV ejection fraction 75 and stress LV ejection fraction 86%. There is no wall motion abnormalities. Resting end- diastolic volume 71 mL. TID ratio 1.0, which is within normal limits. Lung/heart ratio within normal limits. MYOCARDIAL PERFUSION SCAN: Stress supine, resting supine and stress prone images were compared to each other and there is normal myocardial perfusion. Summed stress score and summed rest score zero with difference score zero. CONCLUSION: From perfusion scan, this is a normal myocardial perfusion study with resting LV ejection fraction 75 and stress LV ejection fraction 86% without any wall motion abnormalities and no dilatation of left ventricle. Lung/heart ratio normal. Excellent exercise tolerance. Walked on Gary protocol for 10 minutes, 10.7 METS of workload and ERUM - 57% with normal hemodynamic response without any chest pain, however, on stress EKG the patient has up to [address] depression in inferior leads and leads V3 to V6, and [address] elevation in AVF, which reverted back to baseline around 3 minutes into the recovery. That is abnormal stress EKG. Patient with left main disease or multivessel coronary artery disease, may have balance ischemia which would not show up in perfusion scan, and it would look like a normal myocardial perfusion. However, one can argue that the patient has excellent exercise tolerance with preserved LV function without any wall motion abnormality and stress LV ejection fraction more than resting LV ejection fraction with proper augmentation without any arrhythmia or chest pain would clinically exclude significant coronary artery disease. Correlate clinically and if the patient has typical recurrent anginal symptoms, consider further workup with possible CT coronary angiogram to make sure patient does not have any significant coronary artery disease. Scott Ramos - JATINDER/pito/RAYO doc#: [id number]/job#: [id number] dd: 02/01/2025 12:53:00 dt: 02/01/2025 15:16:00 DICTATING MD/COPIES TO: Deann Jung MD; Dr. Suggs COPIES MNE: LUIS; ; Dr. Suggs
== END ==
LOC: NUCM 12:35
PROVIDERS: PCP Family Medicine; Referring Provider Family Medicine; Visit Provider Family Medicine
DX: R07.9 Chest pain, unspecified (principal); E78.2 Mixed hyperlipidemia; I25.10 Atherosclerotic heart disease of native coronary artery without angina pectoris; I25.84 Coronary atherosclerosis due to calcified coronary lesion
CPT/HCPCS: 78452; 93017; A9502

== ENCOUNTER → 2025-04-02 07:56 | Outpatient (CLI) | payer OTHER, SELFPAY | LOC: ECHO 07:56 | PROVIDERS: PCP Family Medicine; Referring Provider Internal Medicine; Visit Provider Internal Medicine | DX: I35.1 Nonrheumatic aortic (valve) insufficiency (principal); R07.9 Chest pain, unspecified | CPT/HCPCS: 93306 ==

== ENCOUNTER → 2025-04-16 07:03 | Outpatient (CLI) | payer OTHER, SELFPAY ==
[2025-04-16 09:21] LABS: Cholesterol 159 mg/dL (140-199); HDL Cholesterol 59 mg/dL (40-60); Triglycerides 79 mg/dL (35-150)
[2025-04-16 09:47] LABS: Prostate Specific Antigen 8.27 ng/mL (0.10-4.00)
== END ==
PROVIDERS: Urology; PCP Family Medicine; Referring Provider Family Medicine; Visit Provider Family Medicine
DX: C61 Malignant neoplasm of prostate (principal); I10 Essential (primary) hypertension; E78.2 Mixed hyperlipidemia; I25.10 Atherosclerotic heart disease of native coronary artery without angina pectoris; I25.84 Coronary atherosclerosis due to calcified coronary lesion
CPT/HCPCS: 36415; 80061; 84153

== ENCOUNTER 2025-05-03 10:12 | Day surgery (SDC) | payer OTHER, SELFPAY ==
[2025-05-01 07:58] VITALS: BMI 26.6
--- NOTE | 2025-05-03 | PATH_ITS ---
[facility] Accession Number: [id number] No. of containers..04 Tissue . 01 Material submitted: . PART A: duodenum - DUODENUM BIOPSY PART B: duodenum bulb - DUODENAL, BULB BIOPSY PART C: gastrointestinal site - ANTRUM BIOPSY PART D: esophagus - ESOPHAGUS, LOWER . 01 Diagnosis: Part A: DUODENUM BIOPSY: Duodenal mucosa with no diagnostic alterations. No active inflammation and no evidence of celiac disease. . Part B: DUODENAL, BULB BIOPSY: Duodenal mucosa with mild reactive changes suggestive of peptic duodenitis. No active inflammation and no evidence of celiac disease. . Part C: ANTRUM BIOPSY: Gastric mucosa with mild chronic inflammation. No Helicobacter organisms identified. No intestinal metaplasia, dysplasia, or malignancy identified. . Part D: ESOPHAGUS, LOWER: Squamous mucosa with increased intraepithelial eosinophils (up to 20 per high power field). No infectious organisms identified. See comment. . Specimen Comments: The presence of intermediate numbers of intraepithelial eosinophils in the lower esophagus could be compatible with either reflux or eosinophilic esophagitis. Correlation with the endoscopic appearance and clinical features is recommended for further evaluation. [facility] 05/10/2025 1351 Local . 01 Electronically signed: . Thomas Camacho MD, Pathologist NPI- [id number] . 01 Gross description: . A. Received in formalin with two identifiers and duodenum biopsy is a single rich soft tissue fragment, 0.4 cm in greatest dimension, submitted entirely in A1. . B. Received in formalin with two identifiers and duodenal bulb are two rich friable soft tissue fragments, 0.2-0.3 cm in greatest dimension, submitted entirely in B1. . C. Received in formalin with two identifiers and antrum biopsy are three rich friable soft tissue fragments, 0.2-0.4 cm in greatest dimension, submitted entirely in C1. . D. Received in formalin with two identifiers and lower esophagus biopsy are two friable transparent rich soft tissue fragments, 0.2-0.3 cm in greatest dimension, submitted entirely in D1. ([id number]) /MRV 05/10/2025 1351 Local . 01 Microscopic: . Part C: ANTRUM BIOPSY: An immunohistochemical stain was performed to evaluate for Helicobacter organisms and is negative. The control stains appropriately. * This test was developed and the performance characteristics were validated by [employer]. It has not been cleared or approved by the Food and Drug Administration. . Part D: ESOPHAGUS, LOWER: An ABPAS stain was performed to evaluate for fungal organisms and is negative. The control stains appropriately. . 01 Pathologist provided ICD-10: K20.0, K21.0, K29.50, K29.80 . 01 CPT . 060421, 799919, 755840, 968928, [id number], [id number] Specimen Comment: A courtesy copy of this report has been sent to [phone] Performed at: [email or web address] [address], [place], [place] [id number] MD Thomas Camacho MD Phone: [phone]
[2025-05-03 10:47] VITALS: BP 127/87; PULSE 68; RESP 16; TEMP 36.2; O2SAT 97
--- NOTE | 2025-05-03 10:55 | PM.PREOP ---
Pre-operative Note COVID-19 COVID-19 status: Not tested Interval Note History & Physical reviewed/Exam performed by Physician: Yes Changes to H&P: No ASA Class (for procedural sedation): II
[2025-05-03] MEDS: LACTATED RINGERS 1,000 ML 42 ML IV (11:01)
--- NOTE | 2025-05-03 11:31 | P.OP.EGD_ITS ---
Operative Date/Time/Diagnoses Date of procedure: 05/03/25 Time of procedure: 11:33 Pre-op diagnosis: Gastroesophageal reflux Post-op diagnosis: same Procedure & Clinicians Study performed: Esophagogastroduodenoscopy Same procedure(s) as scheduled: Yes Surgeon: Nestor Renteria Anesthesia Type: MAC +/- Procedure Notes Procedure in detail: Surgeon: Nestor Renteria MD Anesthesia: Laurie Honeycutt SURVEILLANCE MANAGER A timeout was performed. A bite blocked was placed. The patient was positioned in the left lateral decubitus position. Anesthesia was administered. The endoscope was inserted through the bite block and passed through the esophagus and stomach and into the duodenum. There was mild duodenitis. Biopsies were taken with the cold forceps from the duodenum. The scope was withdrawn into the duodenal bulb and more duodenitis was noted and biopsies were taken with cold forceps from the duodenal bulb. The scope was withdrawn into the stomach. There was moderate antritis and random biopsies were taken from the antrum with cold forceps. The scope was retroflexed and a moderate hiatal hernia was noted. The scope was withdrawn into the esophagus and biopsies were taken from the distal esophagus with cold forceps. The scope was withdrawn. The patient was awakened and brought to recovery. Sedation time: 8 minutes Findings: Duodenitis, antritis and a moderate hiatal hernia Estimated Blood Loss: 5 Complications: none Post-procedure Disposition: PACU
[2025-05-03 11:32] VITALS: BP 99/52; PULSE 58; RESP 14; TEMP 36.1
[2025-05-03 11:42] VITALS: BP 103/55; PULSE 53; RESP 17; TEMP 36.1; O2SAT 95
[2025-05-03 11:45] VITALS: BP 100/57; PULSE 51; RESP 16; O2SAT 96
== END 2025-05-03 12:05 | disposition home or self-care (01) ==
PROVIDERS: PCP Family Medicine; Referring Provider Family Medicine; Visit Provider Surgery
PROC: 0DJ08ZZ Inspection of Upper Intestinal Tract, Via Natural or Artificial Opening Endoscopic (ICD-10-PCS; CPT 43239; principal; 2025-05-03 11:15)
DX: K21.9 Gastro-esophageal reflux disease without esophagitis (principal); K29.80 Duodenitis without bleeding; K44.9 Diaphragmatic hernia without obstruction or gangrene; K29.50 Unspecified chronic gastritis without bleeding
CPT/HCPCS: 43239; J2704; J7120